=== PATIENT | male | born 1945 | race Caucasian/White ===

== ENCOUNTER → 2017-06-03 | Outpatient (CLI) | payer OTHER, MEDICARE ==
[2017-06-03 16:41] LABS: HEMOGLOBIN 14.6 g/dL (14.1-18.0); LYMPH % 17.2 % (10-50)
[2017-06-03 20:01] LABS: BUN 17 mg/dL (7-18)
[2017-06-03 20:18] LABS: GFR (ESTIMATED) 66 ML/MIN (>60)
== END ==
LOC: LAB 15:58 → RT 15:58
PROVIDERS: Otolaryngology
DX: C44.209 Unspecified malignant neoplasm of skin of left ear and external auricular canal (principal); C44.202 Unspecified malignant neoplasm of skin of right ear and external auricular canal; Z01.818 Encounter for other preprocedural examination

== ENCOUNTER 2017-06-20 06:13 | Day surgery (SDC) | payer OTHER, MEDICARE ==
[~2017-06-20] VITALS: Ht 175.3 cm; Wt 93.0 kg
[2017-06-20 09:34] VITALS: BP 126/69
--- NOTE | 2017-06-20 12:49 | Operative Note ---
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 The lesion on the left ear measured 1.8 cm. It was marked out and the perilesional area was infiltrated with 2 mL of 2 percent lidocaine containing epinephrine. The markup was incised and the lesion was excised and submitted. Bleeding was stopped with bipolar cautery. Flaps were elevated and a tissue rearrangement Z- plasty repair was done with interrupted 4-0 Vicryl and 5-0 nylon sutures. A Dermabond dressing was applied. The lesion on the LEFT cheek was marked out and measured 1.5 cm the perilesional area was infiltrated with the 2 mL of 2 percent lidocaine containing epinephrine. The markup was incised and the lesion was excised and submitted. Bleeding was stopped with bipolar cautery. A tissue rearrangement geometric plastic repair was done with interrupted 4-0 Vicryl and 5-0 nylon sutures. A Dermabond dressing was applied. The patient was repositioned and the lesion on the right ear was marked out it measured 3 cm. The perilesional area was infiltrated with a total of 3.5 mL of 2 percent lidocaine containing epinephrine. The markup was incised and the lesion was excised and submitted. Bleeding was stopped with bipolar cautery. Blood loss for all the procedure was less than 10 mL. Flaps were elevated and a Z-plasty repair was done with interrupted 5-0 nylon and 5-0 Vicryl sutures. A Dermabond dressing was applied, and patient was sent to recovery in good general condition. EBL (ml): 5 Specimens obtained: Same as above at 2174
== END 2017-06-20 09:24 | disposition home or self-care (01) ==
LOC: SDC 06:13
PROVIDERS: Otolaryngology
PROC: 0HB2XZX Excision of Right Ear Skin, External Approach, Diagnostic (ICD-10-PCS; 2017-06-20)
PROC: 0HB1XZX Excision of Face Skin, External Approach, Diagnostic (ICD-10-PCS; 2017-06-20)
PROC: 0HB3XZX Excision of Left Ear Skin, External Approach, Diagnostic (ICD-10-PCS; principal; 2017-06-20 07:30)
DX: C44.212 Basal cell carcinoma of skin of right ear and external auricular canal (principal); C44.229 Squamous cell carcinoma of skin of left ear and external auricular canal; C44.329 Squamous cell carcinoma of skin of other parts of face